=== PATIENT | female | born 1985 | race Caucasian/White ===

== ENCOUNTER 2022-01-03 11:12 | Emergency (ER) | payer OTHER, SELFPAY ==
--- NOTE | ~2022-01-03 | XR_ITS ---
EXAMINATION: XR chest 2V 01/03/2022 11:46 INDICATION: Cough PROCEDURE: 2 view chest COMPARISON: No prior studies for comparison. FINDINGS: The lungs are clear. The cardiomediastinal silhouette is within normal limits. There are no pleural effusions. There is no pneumothorax suspected. IMPRESSION: 1: NO ACUTE CARDIOPULMONARY DISEASE. Reviewed, dictated and finalized at location B.
[2022-01-03 11:25] VITALS: BP 119/77; PULSE 86; RESP 18; TEMP 36.5; O2SAT 99
--- NOTE | 2022-01-03 11:45 | ED.URI ---
HPI - URI/Sore Throat General Chief Complaint: Upper Respiratory Infection Stated Complaint: cough,congestion Time Seen by Provider: 01/03/22 11:45 Source: patient Mode of arrival: ambulatory Limitations: no limitations History of Present Illness HPI Narrative: 36-year-old female with history of asthma presents with complaint of cough, chest congestion for 2 weeks that has worsened over the past 5 days. Patient is afebrile. Using her inhaler as prescribed. States normally does take her longer to get an over an upper respiratory infection due to her asthma history. States this seems to be lasting longer and is getting worse. Is concerned for pneumonia. Patient is speaking in full sentences. No respiratory distress noted. All systems reviewed and negative except as noted above. Related Data Home Medications Medication Instructions Recorded Confirmed Adderall 01/03/22 cholecalciferol (vitamin D3) 1,250 1,250 mcg PO WEEKLY 01/03/22 01/03/22 mcg (50,000 unit) tablet etonogestrel 0.12 mg-ethinyl 1 vag ring vaginal ONCE 01/03/22 01/03/22 estradiol 0.015 mg/24 hr vaginal ring (NuvaRing) Allergies Allergy/AdvReac Type Severity Reaction Status Date / Time Penicillins Allergy Unknown Verified 01/03/22 11:39 Review of Systems Review of Systems: CONSTITUTIONAL: Denies fever, chills, or sweats. EYES: Denies visual changes, redness, or discharge. ENT: Denies rhinorrhea, congestion, sore throat, or otalgia. CARDIOVASCULAR: Denies chest pain, palpitations, or edema. RESPIRATORY: Reports cough and chest congestion. GASTROINTESTINAL: Denies abdominal pain, nausea, vomiting, or diarrhea. GENITOURINARY: Denies dysuria or hematuria. SKIN: Denies rash or itching. MUSCULOSKELETAL: Denies back pain, joint pain, or myalgia. NEUROLOGIC: Denies headache, numbness, or weakness. PSYCHIATRIC: Denies anxiety or depression. All other systems reviewed are negative, except as documented in HPI. PMFSH Comments At time of signature, agree with nursing past medical, surgical, social and family history. There is no relevant family history pertinent to the presenting complaint. Exam Narrative: GENERAL: This is a well-nourished, well-developed patient, in no apparent distress. HEAD: normocephalic, atraumatic. EYES: PERRL. Sclera clear/white. Vision is grossly intact. EARS: External ears normal, auditory canals clear and without drainage, TMs normal without perforation. Hearing grossly intact. NOSE: External nose normal with no obvious nasal discharge, nares without redness, no rhinorrhea. THROAT: Mucous membranes moist, posterior pharynx clear. NECK: Neck supple, non-tender without lymphadenopathy, masses or thyromegaly. CARDIOVASCULAR: Regular rate and rhythm without murmurs, gallops, or rubs. RESPIRATORY: decreased lung sounds to bilateral upper macario otherwise Clear to auscultation. SKIN: warm, Dry, intact with no suspicious lesions or rash, good texture and turgor. NEURO: awake, alert, and oriented to person, place and time. There were no obvious focal neurologic abnormalities. EXTREMITIES: No joint tenderness, effusion, or edema noted. Course Course Level of Care: Express Care Visit Vital Signs Vital signs: Vital Signs Temperature 36.5 C 01/03/22 11:25 Pulse Rate 86 01/03/22 11:25 Respiratory Rate 18 01/03/22 11:25 Blood Pressure 119/77 01/03/22 11:25 Pulse Oximetry 99 01/03/22 11:25 Oxygen Delivery Room Air 01/03/22 11:25 Temperature 36.5 C 01/03/22 11:25 Pulse Rate 86 01/03/22 11:25 Respiratory Rate 18 01/03/22 11:25 Blood Pressure 119/77 01/03/22 11:25 Pulse Oximetry 99 01/03/22 11:25 Oxygen Delivery Room Air 01/03/22 11:25 Reviewed MDM - URI/Sore Throat MDM Narrative Medical decision making narrative: chest x-ray normal. Discussed results with patient. Recommend steroids, continued albuterol inhaler. Patient is aware of diagnosis, understands an
== END 2022-01-03 12:05 | disposition home or self-care (01) ==
PROVIDERS: Emergency Provider Nurse Practitioner Family
DX: J20.9 Acute bronchitis, unspecified (principal)
CPT/HCPCS: 71046; 99203; G0463

== ENCOUNTER 2022-04-10 08:02 | Emergency (ER) | payer OTHER, SELFPAY ==
[2022-04-10 08:21] VITALS: BP 112/74; PULSE 93; RESP 16; TEMP 36.7; O2SAT 98
--- NOTE | 2022-04-10 08:40 | ED.URI ---
HPI - URI/Sore Throat General Chief Complaint: Upper Respiratory Infection Stated Complaint: cold symptoms Source: patient and RN notes reviewed Mode of arrival: ambulatory Limitations: no limitations History of Present Illness HPI Narrative: 36 year old female presents with 11 day history of sore throat, sinus pressure, malaise, and nasal drainage. Symptoms improved on day 5 but worsened on day 6 when she had diarrhea, worsened malaise, headache, and nausea. Seeking care as she is concerned it isn't going away. Takes antihistamines year round. Tried pseudafed, dayquil, nyquil, flonase, hot liquids, increased fluids all without alleviation of symptoms. Has had impairments to sleep and appetite. Denies wheezing, shortness of breath, chest pain, palpitations, recent n/v/d/c. Has PCN allergy with unknown reaction. Says she gets nauseated with doxycycline in the past. MD elicited complaint: cough Related Data Home Medications Medication Instructions Recorded Confirmed cholecalciferol (vitamin D3) 1,250 1,250 mcg PO WEEKLY 01/03/22 04/10/22 mcg (50,000 unit) tablet etonogestrel 0.12 mg-ethinyl 1 vag ring vaginal ONCE 01/03/22 04/10/22 estradiol 0.015 mg/24 hr vaginal ring (NuvaRing) dextroamphetamine-amphetamine ER 10 mg PO DAILY 04/10/22 04/10/22 10 mg 24hr capsule,extend release Allergies Allergy/AdvReac Type Severity Reaction Status Date / Time Penicillins Allergy Unknown Verified 04/10/22 08:35 Review of Systems Review of Systems: CONSTITUTIONAL: Endorses malaise, chills, sweats, fever EYES: Denies visual changes, redness, or discharge ENT: Reports rhinorrhea, congestion, sinus pain, sore throat CARDIOVASCULAR: Denies chest pain, palpitations, edema RESPIRATORY: Reports cough, post nasal drainage. Denies dyspnea GASTROINTESTINAL: Denies abdominal pain or vomiting; denies recent nausea or diarrhea SKIN: Denies rash or itching MUSCULOSKELETAL: Endorses myalgia NEUROLOGIC: Denies headache Exam Narrative: GENERAL: Ill-appearing, nontoxic no acute distress. HEAD: Normocephalic EYES: PERRLA, conjunctivae clear ENT: Mucous membranes moist. Has hoarseness. Oropharynx erythematous without lesions or exudate, no drooling, no trismus, uvula midline. No tripod positioning, muffled voice, soft palate or pharyngeal wall bulging NECK: Supple. No lymphadenopathy CHEST: Clear to auscultation, breath sounds equal. No wheezing, rhonchi, rales, or stridor. No respiratory distress, speaks in full sentences. HEART: Regular rate and rhythm. No murmur heard. SKIN: Warm, dry, no rash. NEURO: Alert and oriented x3. PSYCH: Normal mood and affect Course Course Emergency Course: Patient is aware of diagnosis, understands and agrees to treatment plan. Anticipatory guidance given. Patient agrees to follow-up as directed and is aware of reasons to seek care at the emergency department. Portions of this record may have been created with voice recognition software Level of Care: Express Care Visit Vital Signs Vital signs: Vital Signs Temperature 98.1 F 04/10/22 08:21 Pulse Rate 93 04/10/22 08:21 Respiratory Rate 16 04/10/22 08:21 Blood Pressure 112/74 04/10/22 08:21 Pulse Oximetry 98 04/10/22 08:21 Oxygen Delivery Room Air 04/10/22 08:21 Temperature 98.1 F 04/10/22 08:21 Pulse Rate 93 04/10/22 08:21 Respiratory Rate 16 04/10/22 08:21 Blood Pressure 112/74 04/10/22 08:21 Pulse Oximetry 98 04/10/22 08:21 Oxygen Delivery Room Air 04/10/22 08:25 reviewed MDM - URI/Sore Throat MDM Narrative Medical decision making narrative: Advised continuation of supportive care and addition of antibiotics and antiemetic. Discussed warning symptoms and when to present to ER. To follow up with PCP. Appropriate for outpatient treatment. Differential Diagnosis Differential diagnosis: Likely upper respiratory infection, sinusitis and viral infection Discharge Plan Discharge Clinical Impression:
== END 2022-04-10 09:00 | disposition home or self-care (01) ==
PROVIDERS: Emergency Provider Nurse Practitioner Family
DX: J01.90 Acute sinusitis, unspecified (principal)
CPT/HCPCS: 99213; G0463

== ENCOUNTER 2022-09-10 09:49 | Emergency (ER) | payer OTHER, SELFPAY ==
--- NOTE | ~2022-09-10 | XR_ITS ---
EXAMINATION: XR sacrum coccyx min 2V DATE: 09/10/2022 10:18 INDICATION: Persistent tailbone pain post fall one and a half weeks prior TECHNIQUE: AP, angled AP and lateral views of the sacrum and coccyx were obtained. COMPARISON: None. FINDINGS: Bone alignment is normal. Sacral arches are intact. No fractures identified. Mild osteoarthritis at t he bilateral sacral iliac joints. A few small phleboliths in the pelvis. IMPRESSION: 1. Mild bilateral sacroiliac osteoarthritis. No acute osseous abnormality. Reviewed, dictated and finalized at location B.
[2022-09-10 09:55] VITALS: BP 124/80; PULSE 79; RESP 16; TEMP 36.5; O2SAT 100
--- NOTE | 2022-09-10 10:06 | ED.BACK ---
HPI - Back Pain/Injury General Chief Complaint: Back Pain/Injury Stated Complaint: Tailbone Pain Time Seen by Provider: 09/10/22 10:00 Source: patient Mode of arrival: ambulatory Limitations: no limitations History of Present Illness HPI Narrative: 37-year-old female presented for complaint of tailbone pain after fall 10 days ago. She reports that the onset she had right hip pain and bruising, which is now improved. She states yesterday she rolled back on her tailbone and heard a crunch. Since then she has had tailbone pain which she rates 5/10. Pain is worse with bending/sitting. Denies pain with walking. She has not taken anything for pain stating she does not want to. She has applied ice and heat. She denies radiating pain down the legs, numbness, tingling, weakness of the lower extremities; denies saddle paresthesia or loss of bowel or bladder. Related Data Home Medications Medication Instructions Recorded Confirmed cholecalciferol (vitamin D3) 1,250 1,250 mcg PO WEEKLY 01/03/22 09/10/22 mcg (50,000 unit) tablet etonogestrel 0.12 mg-ethinyl 1 vag ring vaginal ONCE 01/03/22 09/10/22 estradiol 0.015 mg/24 hr vaginal ring (NuvaRing) dextroamphetamine-amphetamine ER 10 mg PO DAILY 04/10/22 09/10/22 10 mg 24hr capsule,extend release fexofenadine 180 mg tablet 180 mg PO DAILY 09/10/22 09/10/22 Allergies Allergy/AdvReac Type Severity Reaction Status Date / Time Penicillins AdvReac Mild Rash Verified 09/10/22 09:51 Review of Systems Review of Systems: CONSTITUTIONAL: Denies body aches, fever, chills EYES: Denies visual changes ENT: Denies rhinorrhea, congestion CARDIOVASCULAR: Denies chest pain, palpitations, or edema. RESPIRATORY: Denies cough or dyspnea. GASTROINTESTINAL: Denies abdominal pain, nausea, vomiting, or diarrhea. SKIN: Denies rash, itching, or wounds. MUSCULOSKELETAL:per HPI NEUROLOGIC: Denies headache, numbness, tingling, or weakness. All systems reviewed & are unremarkable except as noted in HPI and below PMFSH Comments At time of signature, I have reviewed and agree with nursing past medical, surgical, social and family history unless otherwise noted. Please see nursing chart for further information. There is no relevant family history pertinent to the presenting complaint Exam Narrative: GENERAL: Well-appearing, well-nourished, and in no acute distress. HEAD: Normocephalic, atraumatic. EYES: PERRLA, conjunctivae clear NECK: Supple. CHEST: Speaks in full sentences. No respiratory distress. HEART: Regular rate and rhythm. Normal and equal peripheral pulses. EXTREMITIES: Coccyx with tenderness to palpation, no swelling or bruising. Right buttock bruising appears healing approx 15cm diameter with clearing at center. BLEs have normal strength and sensation, normal range of motion. No swelling. No open wounds, or obvious deformity; alignment normal, pulse palpable and equal bilaterally, skin warm, dry, pink. Capillary refill less than 3 seconds. Ambulates with steady gait. SKIN: Warm, dry, no rash. NEURO: Alert and oriented x3. Course Course Emergency Course: Patient is aware of diagnosis, understands and agrees to treatment plan. Anticipatory guidance given. Patient agrees to follow-up as directed and is aware of reasons to seek care at the emergency department. Portions of this record may have been created with voice recognition software Level of Care: Express Care Visit Vital Signs Vital signs: Vital Signs Temperature 97.7 F 09/10/22 09:55 Pulse Rate 79 09/10/22 09:55 Respiratory Rate 16 09/10/22 09:55 Blood Pressure 124/80 09/10/22 09:55 Pulse Oximetry 100 09/10/22 09:55 Oxygen Delivery Room Air 09/10/22 09:55 Temperature 97.7 F 09/10/22 09:55 Pulse Rate 79 09/10/22 09:55 Respiratory Rate 16 09/10/22 09:55 Blood Pressure 124/80 09/10/22 09:55 Pulse Oximetry 100 09/10/22 09:55 Oxygen Delivery Room Air
== END 2022-09-10 10:26 | disposition home or self-care (01) ==
PROVIDERS: Emergency Provider Nurse Practitioner Family
DX: M53.3 Sacrococcygeal disorders, not elsewhere classified (principal); J45.909 Unspecified asthma, uncomplicated; F90.9 Attention-deficit hyperactivity disorder, unspecified type
CPT/HCPCS: 72220; 99213; G0463

== ENCOUNTER 2022-11-19 08:15 | Emergency (ER) | payer OTHER, SELFPAY ==
[2022-11-19 08:42] VITALS: BP 112/73; PULSE 82; RESP 18; TEMP 36.6; O2SAT 99
--- NOTE | 2022-11-19 09:03 | ED.URI ---
HPI - URI/Sore Throat General Chief Complaint: Upper Respiratory Infection Stated Complaint: bilateral ear pain,congestion Time Seen by Provider: 11/19/22 09:04 Source: patient and RN notes reviewed Mode of arrival: ambulatory Limitations: no limitations History of Present Illness HPI Narrative: 37-year-old female presents concern for 2 week history of sinus congestion, green drainage, pain, ear pain and pressure. She reports she has tried multiple [id number] interventions without relief. She reports body aches. MD elicited complaint: nasal congestion and sinus pain Related Data Home Medications Medication Instructions Recorded Confirmed cholecalciferol (vitamin D3) 1,250 1,250 mcg PO WEEKLY 01/03/22 11/19/22 mcg (50,000 unit) tablet dextroamphetamine-amphetamine ER 10 mg PO DAILY 04/10/22 11/19/22 10 mg 24hr capsule,extend release fexofenadine 180 mg tablet 180 mg PO DAILY 09/10/22 11/19/22 etonogestrel 68 mg subdermal 1 implant subdermal ONCE 11/19/22 11/19/22 implant (Nexplanon) Allergies Allergy/AdvReac Type Severity Reaction Status Date / Time Penicillins AdvReac Mild Rash Verified 11/19/22 08:31 Review of Systems Review of Systems: CONSTITUTIONAL: Denies malaise, chills, sweats, or fever. EYES: Denies visual changes, redness, or discharge. ENT: Reports rhinorrhea, congestion, sinus pain, otalgia and sore throat. CARDIOVASCULAR: Denies chest pain, palpitations, or edema. RESPIRATORY: Reports cough. Denies dyspnea. GASTROINTESTINAL: Denies abdominal pain, nausea, vomiting, diarrhea SKIN: Denies rash or itching. MUSCULOSKELETAL: Reports myalgia. NEUROLOGIC: Reports headache. All systems reviewed & are unremarkable except as noted in HPI and below PMFSH Comments At time of signature, agree with nursing past medical, surgical, social and family history. There is no relevant family history pertinent to the presenting complaint Exam Narrative: GENERAL: Well-appearing, well-nourished, and in no acute distress. HEAD: Normocephalic EYES: PERRLA, conjunctivae clear ENT: Nares clear, turbinates edematous and erythematous, being discharge. Mucous membranes moist. TM pearly best with dull light reflex bilaterally; no tragal tenderness. Oropharynx not erythematous without lesions. Tonsils not enlarged and without exudate, no drooling, no hoarseness, no trismus, uvula midline. NECK: Supple. No lymphadenopathy CHEST: Clear to auscultation, breath sounds equal. No wheezing, rhonchi, rales, or stridor. No respiratory distress, speaks in full sentences. HEART: Regular rate and rhythm. No murmur heard. SKIN: Warm, dry, no rash. NEURO: Alert and oriented x3. PSYCH: Normal mood and affect Course Course Emergency Course: Patient is aware of diagnosis, understands and agrees to treatment plan. Anticipatory guidance given. Patient agrees to follow-up as directed and is aware of reasons to seek care at the emergency department. Portions of this record may have been created with voice recognition software Level of Care: Express Care Visit Vital Signs Vital signs: Vital Signs Temperature 97.8 F 11/19/22 08:42 Pulse Rate 82 11/19/22 08:42 Respiratory Rate 18 11/19/22 08:42 Blood Pressure 112/73 11/19/22 08:42 Pulse Oximetry 99 11/19/22 08:42 Oxygen Delivery Room Air 11/19/22 08:42 Temperature 97.8 F 11/19/22 08:42 Pulse Rate 82 11/19/22 08:42 Respiratory Rate 18 11/19/22 08:42 Blood Pressure 112/73 11/19/22 08:42 Pulse Oximetry 99 11/19/22 08:42 Oxygen Delivery Room Air 11/19/22 08:42 Reviewed. MDM - URI/Sore Throat MDM Narrative Medical decision making narrative: Differential diagnosis considered: [place] virus, strep pharyngitis, allergic rhinitis, upper respiratory tract infection, sinusitis, rhinosinusitis, nasopharyngitis. viral pharyngitis, otitis media, otitis externa, pneumonia, bronchitis, viral cough syndrome, viral syndrome, and influenza.
== END 2022-11-19 09:15 | disposition home or self-care (01) ==
PROVIDERS: Emergency Provider Nurse Practitioner
DX: J01.90 Acute sinusitis, unspecified (principal); J45.909 Unspecified asthma, uncomplicated; F90.9 Attention-deficit hyperactivity disorder, unspecified type; Z86.16 Personal history of COVID-19
CPT/HCPCS: 99213; G0463

== ENCOUNTER 2023-05-18 08:28 | Emergency (ER) | payer OTHER, SELFPAY ==
[2023-05-18 08:47] VITALS: BP 109/71; PULSE 85; RESP 18; TEMP 36.5; O2SAT 98
--- NOTE | 2023-05-18 09:04 | ED.URI ---
HPI - URI/Sore Throat General Chief Complaint: Upper Respiratory Infection Stated Complaint: sorethroat Time Seen by Provider: 05/18/23 09:04 Source: patient Mode of arrival: ambulatory Limitations: no limitations History of Present Illness HPI Narrative: 38-year-old female presents with complaint of cough, chest congestion, heaviness in chest when laying flat. Patient reports she was diagnosed with COVID May 03. Has had cough for several weeks. Has tried several [id number] medications without relief of symptoms. Afebrile. All systems reviewed and negative except as noted above. Related Data Home Medications Medication Instructions Recorded Confirmed cholecalciferol (vitamin D3) 1,250 1,250 mcg PO WEEKLY 01/03/22 11/19/22 mcg (50,000 unit) tablet dextroamphetamine-amphetamine ER 10 mg PO DAILY 04/10/22 11/19/22 10 mg 24hr capsule,extend release fexofenadine 180 mg tablet 180 mg PO DAILY 09/10/22 11/19/22 etonogestrel 68 mg subdermal 1 implant subdermal ONCE 11/19/22 11/19/22 implant (Nexplanon) etonogestrel 0.12 mg-ethinyl 1 vag ring vaginal ONCE 05/18/23 05/18/23 estradiol 0.015 mg/24 hr vaginal ring (NuvaRing) fluticasone propionate 50 1 spray intranasal DAILY 05/18/23 05/18/23 mcg/actuation nasal spray,suspension Allergies Allergy/AdvReac Type Severity Reaction Status Date / Time Penicillins Allergy Mild Rash Verified 05/18/23 09:01 Review of Systems Review of Systems: CONSTITUTIONAL: Denies fever, chills, or sweats. Reports fatigue. EYES: Denies visual changes, redness, or discharge. ENT: Denies rhinorrhea, congestion, sore throat, or otalgia. CARDIOVASCULAR: Denies chest pain, palpitations, or edema. RESPIRATORY: Reports cough chest heaviness, dyspnea with exertion. GASTROINTESTINAL: Denies abdominal pain, nausea, vomiting, or diarrhea. GENITOURINARY: Denies dysuria or hematuria. SKIN: Denies rash or itching. MUSCULOSKELETAL: Denies back pain, joint pain, or myalgia. NEUROLOGIC: Denies headache, numbness, or weakness. PSYCHIATRIC: Denies anxiety or depression. All other systems reviewed are negative, except as documented in HPI. PMFSH Comments At time of signature, agree with nursing past medical, surgical, social and family history. There is no relevant family history pertinent to the presenting complaint. Exam Narrative: GENERAL: This is a well-nourished, well-developed patient, in no apparent distress. HEAD: normocephalic, atraumatic. EYES: PERRL. Sclera clear/white. Vision is grossly intact. EARS: External ears normal, auditory canals clear and without drainage, TMs normal without perforation. Hearing grossly intact. NOSE: External nose normal with no obvious nasal discharge, nares without redness, no rhinorrhea. THROAT: Mucous membranes moist, posterior pharynx clear. NECK: Neck supple, non-tender without lymphadenopathy, masses or thyromegaly. CARDIOVASCULAR: Regular rate and rhythm without murmurs, gallops, or rubs. RESPIRATORY: decreased throughout all lung macario with mild expiratory wheeze to lower lung macario. Breath sounds equal bilaterally. No rales, or rhonchi. SKIN: warm, Dry, intact with no suspicious lesions or rash, good texture and turgor. NEURO: awake, alert, and oriented to person, place and time. There were no obvious focal neurologic abnormalities. EXTREMITIES: No joint tenderness, effusion, or edema noted. Course Course Level of Care: Express Care Visit Vital Signs Vital signs: Vital Signs Temperature 36.5 C 05/18/23 08:47 Pulse Rate 85 05/18/23 08:47 Respiratory Rate 18 05/18/23 08:47 Blood Pressure 109/71 05/18/23 08:47 Pulse Oximetry 98 05/18/23 08:47 Oxygen Delivery Room Air 05/18/23 08:47 Temperature 36.5 C 05/18/23 08:47 Pulse Rate 85 05/18/23 08:47 Respiratory Rate 18 05/18/23 08:47 Blood Pressure 109/71 05/18/23 08:47 Pulse Oximetry 98 05/18/23 08:47 Oxygen Delivery R
== END 2023-05-18 09:44 | disposition home or self-care (01) ==
PROVIDERS: Emergency Provider Nurse Practitioner Family
DX: J06.9 Acute upper respiratory infection, unspecified (principal); R05.9 Cough, unspecified; J45.909 Unspecified asthma, uncomplicated; Z86.16 Personal history of COVID-19
CPT/HCPCS: 87081; 87804; 87880; 99213; G0463

== ENCOUNTER 2023-05-23 08:26 | Emergency (ER) | payer OTHER, SELFPAY ==
--- NOTE | ~2023-05-23 | XR_ITS ---
EXAMINATION: XR chest 2V DATE: 05/23/2023 08:59 INDICATION: 3 weeks of cough TECHNIQUE: PA and lateral views of the chest were obtained. COMPARISON: Chest radiograph dated 01/03/22 FINDINGS: The lungs remain clear with no focal airspace opacities, pulmonary edema, pleural effusion or pneumot horax. The cardiomediastinal silhouette is normal. Mild pectus excavatum. Mild thoracic dextrocurvatu re. IMPRESSION: 1. No acute cardiopulmonary disease. Reviewed, dictated and finalized at location A.
[2023-05-23 08:36] VITALS: BP 121/71; PULSE 85; RESP 18; TEMP 37.1; O2SAT 97
[2023-05-23 08:38] VITALS: BP 121/71; PULSE 85; RESP 18; TEMP 37.1; O2SAT 97
--- NOTE | 2023-05-23 08:52 | ED.URI ---
HPI - URI/Sore Throat General Chief Complaint: Upper Respiratory Infection Stated Complaint: Congestion,Shortness of Breath Time Seen by Provider: 05/23/23 08:28 Source: patient Mode of arrival: ambulatory Limitations: no limitations History of Present Illness HPI Narrative: Teressa is a 38-year-old female patient presenting to the clinic today with complaints of cough, congestion, and shortness of breath. She reports she was seen on Thursday for similar symptoms and was given prescription for prednisone and doxycycline. Reports that she has got 2 more days of doxycycline to take but she has finished the prednisone and she is not having any relief of symptoms. Feels as though her throat is tight and she is short of breath. Denies any fever or chills. Has a nonproductive cough. Was positive for COVID back on May 03. Was offered an x-ray on Thursday and declined at that time. Denies any chest pain. She is a nonsmoker. MD elicited complaint: cough and other (Short of breath) Related Data Home Medications Medication Instructions Recorded Confirmed cholecalciferol (vitamin D3) 1,250 1,250 mcg PO WEEKLY 01/03/22 05/23/23 mcg (50,000 unit) tablet dextroamphetamine-amphetamine ER 10 mg PO DAILY 04/10/22 05/23/23 10 mg 24hr capsule,extend release fexofenadine 180 mg tablet 180 mg PO DAILY 09/10/22 05/23/23 etonogestrel 68 mg subdermal 1 implant subdermal ONCE 11/19/22 05/23/23 implant (Nexplanon) etonogestrel 0.12 mg-ethinyl 1 vag ring vaginal ONCE 05/18/23 05/23/23 estradiol 0.015 mg/24 hr vaginal ring (NuvaRing) fluticasone propionate 50 1 spray intranasal DAILY 05/18/23 05/23/23 mcg/actuation nasal spray,suspension Allergies Allergy/AdvReac Type Severity Reaction Status Date / Time Penicillins Allergy Mild Rash Verified 05/23/23 08:37 Review of Systems Review of Systems: Pertinent positives per HPI. Patient denies any fever, chills, rash, headache, visual changes, dizziness, chest pain, palpitations, nausea, vomiting, diarrhea, constipation, abdominal pain, or any urinary issues. PMFSH Comments At the time of my signature, I reviewed and agree with the nursing past medical, surgical, social, and family history. There is no relevant family history pertinent to the patient complaint. Exam Narrative: General: Well-developed, well nourished, in no apparent distress Head: Normocephalic, atraumatic Eyes: Pupils equally round and reactive to light bilaterally, EOM intact, sclera and conjunctive clear, no discharge, lids normal Ears: TMs intact and clear, ear canals clear, no drainage, grossly hearing normal. Nose: Nares patent, clear discharge, my inflammation, no sinus tenderness. Mouth: Oral pharynx mildly red without lesions or masses, good dentition, MMM. Neck: Supple, trachea midline, no enlargement of anterior or posterior cervical nodes, no thyroid masses or goiter palpable. Cardio: Regular rate and rhythm, s1 and s2 normal, no murmur appreciated. Resp: Clear to auscultation bilaterally, no rhonchi, rales, wheezing or rubs, speaking in full sentences without taking breath. Course Course Emergency Course: Portions of this record may have been created with voice recognition software. Level of Care: Express Care Visit Vital Signs Vital signs: Vital Signs Temperature 37.1 C 05/23/23 08:36 Pulse Rate 85 05/23/23 08:36 Respiratory Rate 18 05/23/23 08:36 Blood Pressure 121/71 05/23/23 08:36 Pulse Oximetry 97 05/23/23 08:36 Oxygen Delivery Room Air 05/23/23 08:36 Temperature 37.1 C 05/23/23 08:38 Pulse Rate 85 05/23/23 08:38 Respiratory Rate 18 05/23/23 08:38 Blood Pressure 121/71 05/23/23 08:38 Pulse Oximetry 97 05/23/23 08:38 Oxygen Delivery Room Air 05/23/23 08:38 Vital signs reviewed MDM - URI/Sore Throat MDM Narrative Medical decision making narrative: At the time of visit patient is resting comfortably on the exam ta
== END 2023-05-23 09:14 | disposition home or self-care (01) ==
PROVIDERS: Emergency Provider Nurse Practitioner Family
DX: R05.3 Chronic cough (principal); Z79.899 Other long term (current) drug therapy
CPT/HCPCS: 71046; 99213; G0463

== ENCOUNTER 2023-11-29 08:18 | Emergency (ER) | payer OTHER, SELFPAY ==
[2023-11-29 09:06] VITALS: BP 116/73; PULSE 96; RESP 16; TEMP 36.8; O2SAT 98
--- NOTE | 2023-11-29 09:21 | ED.URI ---
HPI - URI/Sore Throat General Chief Complaint: Upper Respiratory Infection Stated Complaint: congestion, cold symptoms, sinus issues Time Seen by Provider: 11/29/23 09:21 Source: patient, RN notes reviewed and old records reviewed Mode of arrival: ambulatory Limitations: no limitations History of Present Illness HPI Narrative: 38-year-old female to Express Care with complaint of Cold symptoms for 1 month and right ear discomfort radiating into right jaw and sinuses for 2 days. Patient reports finishing doxycycline 1 week ago. patient has attempted to treat at home with Flonase and Benadryl with little relief. Patient currently endorsing pain 05/16. Patient denies sore throat, cough, shortness of breath, difficulty swallowing, pertinent medical history. Patient able to tolerate fluids by mouth. Patient resting comfortably in exam room in no acute distress. Respirations even and nonlabored. Related Data Home Medications Medication Instructions Recorded Confirmed cholecalciferol (vitamin D3) 1,250 1,250 mcg PO WEEKLY 01/03/22 11/29/23 mcg (50,000 unit) tablet dextroamphetamine-amphetamine ER 10 mg PO DAILY 04/10/22 11/29/23 10 mg 24hr capsule,extend release fexofenadine 180 mg tablet 180 mg PO DAILY 09/10/22 11/29/23 etonogestrel 0.12 mg-ethinyl 1 vag ring vaginal ONCE 05/18/23 11/29/23 estradiol 0.015 mg/24 hr vaginal ring (NuvaRing) fluticasone propionate 50 1 spray intranasal DAILY 05/18/23 11/29/23 mcg/actuation nasal spray,suspension Allergies Allergy/AdvReac Type Severity Reaction Status Date / Time Penicillins AdvReac Mild Rash Verified 11/29/23 08:47 Review of Systems Review of Systems: All systems reviewed & are unremarkable except as noted in HPI and below Constitutional: Constitutional: Reports no additional constitutional complaints Eyes: Eyes: Reports no additional eye complaints ENT: Reports as per HPI, Reports otalgia (Right) and Reports sinus pain Cardiovascular: Cardiovascular: Reports no additional cardiovascular complaints, Denies chest pain and Denies dyspnea Respiratory: Respiratory: Reports no additional respiratory complaints, Denies cough and Denies dyspnea Musculoskeletal: Musculoskeletal: Reports no additional musculoskeletal complaints Neurologic: Reports system reviewed and no additional complaints, except as documented Psychiatric: Psychiatric: Reports no additional psychiatric complaints PMFSH Comments At the time of my signature, I reviewed and agree with the nursing past medical, surgical, social, and family history. There is no relevant family history pertinent to the patient complaint. Exam Const: General: cooperative, healthy appearing, comfortable, no acute distress, alert, tired appearing and well nourished Nutritional Appearance: well nourished Orientation/consciousness: patient oriented x3 Limitations: no limitations HENMT: Head: normal to inspection Ears: external ears normal and TM abnormal bulging on the right, erythematous on the right, with fluid behind the TM on the right and with loss of landmarks on the right Face/Nose/Sinus: Normal external nose present, Normal nares present, normal facial exam, No erythema and No edema Face and sinus: normal facial exam, no erythema and no edema Mouth: Yes Normal oral and palatal mucosa present Eyes: General: appearance normal, both eyes and all related structures Neck: Neck: normal visual inspection, full ROM and no meningeal signs Chest: Chest palpation & inspection: normal inspection of the chest Resp: Effort & Inspection: normal respiratory effort and able to speak in complete sentences Auscultation: clear to auscultation bilaterally Cardio: Jugular venous distension: no JVD Rate: regular rate Rhythm: regular rhythm Back/Spine/Pelvis: Cervical Spine: cervical ROM normal Skin: General skin exam: normal color, no rashes or lesions noted and turgor normal Neuro: General: patient oriented x
== END 2023-11-29 09:55 | disposition home or self-care (01) ==
PROVIDERS: Emergency Provider Nurse Practitioner Family
DX: H66.91 Otitis media, unspecified, right ear (principal); J45.909 Unspecified asthma, uncomplicated; F90.9 Attention-deficit hyperactivity disorder, unspecified type; Z86.16 Personal history of COVID-19
CPT/HCPCS: 99213; G0463

== ENCOUNTER 2024-01-19 08:18 | Emergency (ER) | payer OTHER, SELFPAY ==
--- NOTE | ~2024-01-19 | XR_ITS ---
EXAMINATION: XR chest 2V DATE: 01/19/2024 09:28 INDICATION: Cough and congestion TECHNIQUE: PA and lateral views of the chest were obtained. COMPARISON: Chest radiograph dated 05/23/23 FINDINGS: The lungs remain clear with no focal airspace opacities, pulmonary edema, pleural effusion or pneumot horax. The cardiomediastinal silhouette is normal. Mild pectus excavatum. IMPRESSION: 1. No acute cardiopulmonary disease Reviewed, dictated and finalized at location B. ERIN SUPERVISOR
[2024-01-19 09:00] VITALS: BP 108/70; PULSE 78; RESP 16; TEMP 36.4; O2SAT 99
--- NOTE | 2024-01-19 09:10 | ED_ITS ---
HPI - URI/Sore Throat General Chief Complaint: Upper Respiratory Infection Stated Complaint: cough / chest pain / congestion Time Seen by Provider: 01/19/24 09:11 Source: patient, RN notes reviewed and old records reviewed Mode of arrival: ambulatory Limitations: no limitations History of Present Illness HPI Narrative: 38-year-old female presents to the [facility] with complaints of cough, congestion, sinus congestion for 1 week. States that she has been taken [id number] products with no relief. Denies fevers. Denies chest pain. Reports intermittent shortness of breath when she wakes up and coughing Related Data Home Medications Medication Instructions Recorded Confirmed cholecalciferol (vitamin D3) 1,250 1,250 mcg PO WEEKLY 01/03/22 01/19/24 mcg (50,000 unit) tablet dextroamphetamine-amphetamine ER 10 mg PO DAILY 04/10/22 01/19/24 10 mg 24hr capsule,extend release fexofenadine 180 mg tablet 180 mg PO DAILY 09/10/22 01/19/24 fluticasone propionate 50 1 spray intranasal DAILY 05/18/23 01/19/24 mcg/actuation nasal spray,suspension Allergies Allergy/AdvReac Type Severity Reaction Status Date / Time Penicillins AdvReac Mild Rash Verified 11/29/23 08:47 Review of Systems Review of Systems: All systems reviewed & are unremarkable except as noted in HPI and below Constitutional: Constitutional: Reports no additional constitutional complai nts ENT: Reports as per HPI Cardiovascular: Cardiovascular: Reports no additional cardiovascular complaints, Denies chest pain and Denies dyspnea Respiratory: Respiratory: Reports as per HPI, Denies chest congestion, Denies cough and Denies dyspnea Gastrointestinal: Gastrointestinal: Reports no additional gastrointestinal complaints, Denies abdominal pain, Denies nausea and Denies vomiting Musculoskeletal: Musculoskeletal: Reports no additional musculoskeletal complaints Integumentary/Breasts: Skin/Breast: Reports system reviewed and no additional complaints, except as docu PMFSH Comments At the time of my signature, I reviewed and agree with the nursing past medical, surgical, social, and family history. There is no relevant family history pertinent to the patient complaint. Exam Const: General: cooperative, healthy appearing, comfortable, no acute distress, well developed, alert and well nourished Nutritional Appearance: well nourished Orientation/consciousness: patient oriented x3 Limitations: no limitations HENMT: Head: normal to inspection Ears: hearing grossly normal bilaterally, external ears normal, TM's normal bilaterally, EAC's normal, mastoids normal and no periauricular adenopathy Face/Nose/Sinus: Normal external nose present, No nasal discharge present, normal facial exam and face symmetric Face and sinus: normal facial exam, sinuses nontender and face symmetric Mouth: Yes Normal oral and palatal mucosa present, Yes lip normal and Yes tongue normal Throat: posterior oropharynx normal, uvula midline and no uvular edema Eyes: General: appearance normal, both eyes and all related structures Alignment and Position: alignment normal Periorbital: periorbital findings normal Neck: Neck: normal visual inspection, full ROM, no lymphadenopathy and no meningeal signs Chest: Chest palpation & inspection: normal inspection of the chest Resp: Effort & Inspection: normal respiratory effort and able to speak in complete sentences Auscultation: clear to auscultation bilaterally, no crackles, no rales, no rhonchi, no wheezes and diminished lung sounds bilateral in the lower lung macario Cardio: Rate: regular rate Skin: General skin exam: normal color and no rashes or lesions noted Lesions: no lesions Rashes: no rashes Wounds: no wounds Neuro: General: patient oriented x3, gait normal, tone normal, moves all extremities and no meningeal signs Cognition (Neuro): normal cognition Speech: normal speech Gait exam (Neuro): Normal gait present Extrem: General: normal to inspection, full ROM, capillary refill normal and normal gait Psych: Appearance: grossly normal and well kempt Mental Status: mental status grossly normal Speech and movement: Normal speech and movement present and Clear speech present Affect: normal affect Attitude: cooperative Course Course Level of Care: Express Care Visit Vital Signs Vital signs: Vital Signs Temperature 97.6 F 01/19/24 09:00 Pulse Rate 78 01/19/24 09:00 Respiratory Rate 16 01/19/24 09:00 Blood Pressure 108/70 01/19/24 09:00 Pulse Oximetry 99 01/19/24 09:00 Oxygen Delivery Room Air 01/19/24 09:00 Temperature 97.6 F 01/19/24 09:00 Pulse Rate 78 01/19/24 09:00 Respiratory Rate 16 01/19/24 09:00 Blood Pressure 108/70 01/19/24 09:00 Pulse Oximetry 99 01/19/24 09:00 Oxygen Delivery Room Air 01/19/24 09:00 Reviewed MDM - URI/Sore Throat MDM Narrative Medical decision making narrative: Patient sitting comfortably in exam room. Nontoxic, vitals stable. Patient in no acute distress. Patient presents with one-week history chest congestion, sinus congestion, pressure. Chest x-ray with no acute findings. Patient appropriate for outpatient treatment and follow-up Discharge instructions reviewed with patient, as well as provided in writing per nursing staff. The instructions also include specific and strict return/GO TO THE ER as well as f/u information. All questions have been answered, and the patient deny any further questions with discharge and discharge plan. Some parts of this dictation were generated by voice recognition software and may contain typographical and/or grammatical inaccuracies. Differential Diagnosis Differential diagnosis: Likely upper respiratory infection, otitis media, sinusitis, viral infection, bronchitis, influenza and pharyngitis Imaging Data Radiologist's impression: EXAMINATION: XR chest 2V DATE: 01/19/2024 09:28 INDICATION: Cough and congestion TECHNIQUE: PA and lateral views of the chest were obtained. COMPARISON: Chest radiograph dated 05/23/23 FINDINGS: The lungs remain clear with no focal airspace opacities, pulmonary edema, pleural effusion or pneumothorax. The cardiomediastinal silhouette is normal. Mild pectus excavatum. IMPRESSION: 1. No acute cardiopulmonary disease Critical Care Time Critical Care Time Critical Care Time: No Discharge Plan Discharge Clinical Impression: Sinusitis, Bronchitis Patient Disposition: Home, Self-Care Condition: Stable Instructions: Antibiotic Form, Sinusitis (ED), Acute Bronchitis (ED) Additional Instructions: Your chest x-ray did not show signs of pneumonia. -Alternate Tylenol and Motrin per package directions for fever or pain. -Antihistamine medication such as Benadryl at night and Zyrtec/Claritin/Priyanka during the day can help improve symptoms. -doing daily nasal irrigations can help relieve pressure your sinuses. Things like a Neti pot -Use Flonase twice a day for 5 days then daily to help reduce the inflammation and dry up your sinuses. -You can also use Sudafed or Mucinex. Be sure to drink plenty of water with these medications at least 8 ounces with every dose and it is important to drink 8 to 10 glasses of water per day. Water is a natural decongestant -Eat and drink things that are easy to swallow, like tea or soup, or popsicles. -Oral rinses such as: Salt water gargles and/or may use topical anesthetic (eg. Chloraseptic spray) or lozenges to relieve dryness or throat pain). -Frequent hand washing or hand commission agent livestock is one of the best ways to prevent spread of infection. -Using a vaporizer or humidifier at night will also help thin secretions and help with coughing up phlegm. -Follow up with primary care provider in 3-5 days if condition is not improving - For new or worsening symptoms go directly to the nearest ER Patient Language: Ukrainian Prescriptions: New prednisone 20 mg tablet See Rx Instructions .Route .COMPLEX Qty: 9 0RF Rx Instructions: Take 40 mg daily for 3 days, 20 mg daily for 3 days doxycycline monohydrate 100 mg tablet 100 mg PO BID Qty: 14 0RF No Action cholecalciferol (vitamin D3) 1,250 mcg (50,000 unit) Tablet 1,250 mcg PO WEEKLY dextroamphetamine-amphetamine 10 mg capsule,extended release 24hr 10 mg PO DAILY fexofenadine 180 mg tablet 180 mg PO DAILY fluticasone propionate [Flonase] 50 mcg/actuation [place],Suspension 1 spray INTRANASAL DAILY Rx Instructions: administer into each nostril Follow-up/Referrals: PHYSICIAN,AUTHOR'S AGENT [Primary Care Provider] - Stand Alone Forms: Work/School Release IP Time of Disposition: 09:49
== END 2024-01-19 09:59 | disposition home or self-care (01) ==
PROVIDERS: Emergency Provider Nurse Practitioner
DX: J32.9 Chronic sinusitis, unspecified (principal); J40 Bronchitis, not specified as acute or chronic; F90.9 Attention-deficit hyperactivity disorder, unspecified type; J45.909 Unspecified asthma, uncomplicated; Z86.16 Personal history of COVID-19
CPT/HCPCS: 71046; 99213; G0463

== ENCOUNTER 2024-01-24 08:11 | Emergency (ER) | payer OTHER, SELFPAY | END 2024-01-24 15:27 | disposition home or self-care (01) | PROVIDERS: Emergency Provider Nurse Practitioner | DX: J40 Bronchitis, not specified as acute or chronic (principal) | CPT/HCPCS: 99211; 99213; G0463 ==